=== PATIENT | female | born 2000 | race Caucasian/White ===

== ENCOUNTER 2021-01-21 18:28 | Emergency (ER) | payer OTHER, SELFPAY ==
[2021-01-21 18:42] VITALS: BP 102/56; PULSE 121; RESP 18; TEMP 37.5; O2SAT 96
[2021-01-21 20:43] VITALS: BP 121/74; PULSE 90; RESP 19; O2SAT 99
--- NOTE | 2021-01-21 21:03 | ED.GENADULT ---
HPI - General Adult General Chief complaint: Unspecified Stated complaint: sore throat Time Seen by Provider: 01/21/21 20:30 Source: patient Mode of arrival: ambulatory Limitations: no limitations History of Present Illness HPI narrative: Patient is a 20-year-old female who presents complaining of sore throat, body aches, chills and fever x3 days. She reports taking [id number]-[id number] medications with limited relief. She reports difficulty swallowing and is concerned for strep throat. She denies known exposure to Covid, however, does work outside of her home. MD complaint: Sore throat Related Data Allergies Allergy/AdvReac Type Severity Reaction Status Date / Time No Known Allergies Allergy Verified 01/21/21 21:05 Review of Systems Review of Systems: Narrative: CONSTITUTIONAL: Reports fever and chills x3 days EYES: Denies visual changes, redness, or discharge. ENT: Reports sore throat CARDIOVASCULAR: Denies chest pain, palpitations, or edema. RESPIRATORY: Denies cough or dyspnea. GASTROINTESTINAL: Denies abdominal pain, nausea, vomiting, or diarrhea. GENITOURINARY: Denies dysuria or hematuria. SKIN: Denies rash or itching. MUSCULOSKELETAL: Denies back pain, joint pain, or myalgia. NEUROLOGIC: Denies headache, numbness, dizziness, or weakness. PSYCHIATRIC: Denies anxiety or depression. PMFSH Past Medical History Medical History No significant past medical history Surgical History Surgical History No significant past surgical history Family History Family History Other No significant family history Social History Social History (Updated 01/21/21 @ 21:18 by EILEEN Wright) Smoking status: Never smoker Alcohol intake: never Substance use: never Living arrangements: with friend(s) Occupation/Education: occupation Comments At the time of signature, I have reviewed and agree with nursing past medical, surgical, social, and family history unless otherwise noted. Please see nursing chart for further information. There is no relevant family history pertinent to the presenting complaint. Exam Narrative: Exam Narrative: GENERAL: Well-appearing, well-nourished, and in no acute distress. HEAD: Normocephalic, atraumatic. EYES: EOMI. No redness or drainage. Conjunctiva are normal. ENT: Mucous membranes pink and moist. Nares clear. No rhinorrhea. TMs normal bilaterally. Throat with moderate erythema, edema and exudate NECK: AROM. Supple. No lymphadenopathy. CHEST: No respiratory distress. HEART: Regular rate and rhythm. EXTREMITIES: Normal range of motion. No edema. SKIN: Warm, dry, no rash. NEURO: No focal deficits. Alert and oriented x3. Gait steady. PSYCH: Normal affect. No signs of depression or anxiety. Course Vital Signs Vital signs: Vital Signs Temperature 37.5 C 01/21/21 18:42 Pulse Rate 121 H 01/21/21 18:42 Respiratory Rate 18 01/21/21 18:42 Blood Pressure 102/56 L 01/21/21 18:42 Pulse Oximetry 96 01/21/21 18:42 Temperature 37.5 C 01/21/21 18:42 Pulse Rate 121 H 01/21/21 18:42 Respiratory Rate 18 01/21/21 18:42 Blood Pressure 102/56 L 01/21/21 18:42 Pulse Oximetry 96 01/21/21 18:42 Reviewed Medical Decision Making MDM Narrative Medical decision making narrative: Patient's rapid strep was negative, culture sent. Patient tested for Covid in ED, results will be available in 1 to 2 days and patient aware. Patient to be treated for tonsillitis at this time. Discussed tdge-vna-jbiwvao medications for pain as well as good hydration. Patient is aware of Covid testing and aware of quarantine. Patient is stable for discharge home with outpatient follow-up as discussed. Differential Diagnosis Differential Diagnosis: Covid, strep throat, tonsillitis, pharyngitis Vital Signs Vital Signs:
[2021-01-21 22:00] VITALS: BP 128/70; PULSE 88; RESP 17; O2SAT 99
[2021-01-22 12:21] LABS: SARS-CoV-2 RNA PCR Positive
== END 2021-01-21 22:00 | disposition home or self-care (01) ==
PROVIDERS: Emergency Provider Nurse Practitioner
DX: U07.1 COVID-19 (principal); J03.90 Acute tonsillitis, unspecified
CPT/HCPCS: 87081; 87880; 99283; C9803; U0003; U0005

== ENCOUNTER 2022-06-18 10:18 | Emergency (ER) | payer OTHER, SELFPAY ==
[2022-06-18 10:25] VITALS: BP 117/65; PULSE 84; RESP 20; TEMP 36.6; O2SAT 100
--- NOTE | 2022-06-18 11:03 | ED.FEMALEGU ---
HPI - Female Genitourinary General Chief complaint: Urogenital-Female Stated complaint: Female Urogenital Time Seen by Provider: 06/18/22 11:03 History of Present Illness HPI Narrative: Yuki Downing is a 21 yo female with recurrent uti who comes to [facility] with complaints of pressure, retention, who comes to [facility] for treatment and also for test. She had a recent sexual encounter with a condom that was retained in her vaginal vault and was concerned about becoming Related Data Allergies Allergy/AdvReac Type Severity Reaction Status Date / Time No Known Allergies Allergy Verified 06/18/22 10:28 Review of Systems Review of Systems: CONSTITUTIONAL: Denies fever, chills, sweats. EYES: Denies visual changes, redness, discharge. ENT: Denies rhinorrhea, congestion, sore throat, otalgia. CARDIOVASCULAR: Denies chest pain, palpitations, edema. RESPIRATORY: Denies dyspnea, wheezing, cough GASTROINTESTINAL: Denies abdominal pain, nausea, vomiting, diarrhea. GENITOURINARY: Has dysuria, hematuria, abnormal discharge SKIN: Denies rash or itching. NEUROLOGIC: Denies numbness, or focal weakness. PSYCHIATRIC: Denies anxiety or depression. wants test PMFSH Past Medical History Medical History No significant past medical history Surgical History Surgical History No significant past surgical history Family History Family History Other No significant family history Social History Social History Smoking status: Never smoker Alcohol intake: never Substance use: never Comments At time of signature, I agree with nursing past medical, surgical, social and family history. There is no relevant family history pertinent to the presenting complaint. GENERAL: This is a well-nourished, well-developed patient, in mild distress. HEAD: normocephalic, atraumatic. EYES: Sclera clear/white. Vision is grossly intact. EARS: External ears normal. Hearing grossly intact. NOSE: External nose normal without nasal discharge, nares without redness, no rhinorrhea. THROAT: Mucous membranes moist, NECK: Neck supple, CARDIOVASCULAR: Regular rate and rhythm without murmurs, gallops, or rubs. RESPIRATORY: Clear to auscultation. Breath sounds equal bilaterally. No wheezes, rales, or rhonchi. GASTROINTESTINAL: Abdomen soft, SKIN: warm, intact with no suspicious lesions or rash, good texture and turgor. NEURO: awake, alert, and oriented to person, place and time. There were no obvious focal neurologic abnormalities. Steady gait EXTREMITIES: Normal range of motion. BACK: Nontender without deformity Course Course Emergency Course: Patient comes for complaints of dysuria and possible test negative UA shows positive blood, leukocytes 3+ Keflex twice daily x5 days Level of Care: [facility] Visit Vital Signs Vital signs: Vital Signs Temperature 97.9 F 06/18/22 10:25 Pulse Rate 84 06/18/22 10:25 Respiratory Rate 20 06/18/22 10:25 Blood Pressure 117/65 06/18/22 10:25 Pulse Oximetry 100 06/18/22 10:25 Oxygen Delivery Room Air 06/18/22 10:25 Temperature 97.9 F 06/18/22 10:25 Pulse Rate 84 06/18/22 10:25 Respiratory Rate 20 06/18/22 10:25 Blood Pressure 117/65 06/18/22 10:25 Pulse Oximetry 100 06/18/22 10:25 Oxygen Delivery Room Air 06/18/22 10:25 MDM - Female Genitourinary Differential Diagnosis Differential diagnosis: Likely urinary tract infection, cystitis and other (Potential ) Lab Data Labs: Urine Bilirubin Negative Reference Range: Negative Urine Ketone Negative Reference Range: Ne
== END 2022-06-18 11:22 | disposition home or self-care (01) ==
PROVIDERS: Emergency Provider Nurse Practitioner
DX: N30.01 Acute cystitis with hematuria (principal)
CPT/HCPCS: 81003; 87077; 87086; 87186; 99213; G0463

== ENCOUNTER 2022-08-06 17:34 | Emergency (ER) | payer OTHER, SELFPAY ==
[2022-08-06 17:42] VITALS: BP 108/65; PULSE 111; RESP 16; TEMP 36.6; O2SAT 100
--- NOTE | 2022-08-06 18:21 | ED.FEMALEGU ---
HPI - Female Genitourinary General Chief complaint: Urogenital-Female Stated complaint: Urinary Problem Time Seen by Provider: 08/06/22 18:10 Source: patient, RN notes reviewed and old records reviewed Mode of arrival: ambulatory Limitations: no limitations History of Present Illness HPI Narrative: 22-year-old female who presents to [facility] with complaints of urinary tract symptoms of perineal pressure, frequency and urgency for the past 12 hours. Patient denies any back pain or any vaginal bleeding or any abdominal cramping.Patient is 8 weeks . Patient reports that she has had initial ultrasound which was normal. Patient reports no known fevers or chills or any nausea or vomiting, MD elicited complaint: dysuria and other (8 weeks ) Pertinent past history: other (prior UTI in June) Onset (ago): hour(s) (12 hours ago) Location of symptoms: perineum Vaginal discharge: none Vaginal bleeding: none Patient : Yes Related Data Allergies Allergy/AdvReac Type Severity Reaction Status Date / Time No Known Allergies Allergy Verified 06/18/22 10:28 Review of Systems Review of Systems: CONSTITUTIONAL: Denies fever, chills, or sweats. EYES: Denies visual changes, redness, or discharge. ENT: Denies rhinorrhea, congestion, sore throat, or otalgia. CARDIOVASCULAR: Denies chest pain, palpitations, or edema. RESPIRATORY: Denies cough or dyspnea. GASTROINTESTINAL: Denies abdominal pain, nausea, vomiting, or diarrhea. GENITOURINARY: Positive for dysuria, no visible hematuria. SKIN: Denies rash or itching. MUSCULOSKELETAL: Denies back pain, joint pain, or myalgia. NEUROLOGIC: Denies headache, numbness, or weakness. PSYCHIATRIC: Denies anxiety or depression. [facility] Past Medical History Medical History (Updated 08/06/22 @ 20:10 by Shanelle Mena NP) UTI (urinary tract infection) Surgical History Surgical History No significant past surgical history Family History Family History Other No significant family history Social History Social History Smoking status: Never smoker Alcohol intake: never Substance use: never Comments At time of signature, agree with nursing past medical, surgical, social and family history. There is no relevant family history pertinent to the presenting complaint Exam Narrative: GENERAL: Well-appearing, well-nourished, and in no acute distress. HEAD: Normocephalic, atraumatic. EYES: PERRLA and EOMI. ENT: Nares clear, no rhinorrhea or epistaxis. Mucous membranes moist.TM's normal with good light reflex, throat pink with no lesions or tonsil swelling. NECK: Supple. no lymphadenopathy CHEST: Clear to auscultation. No respiratory distress. SAO2 100% on room air HEART: Regular rate and rhythm. No murmur heard. Normal peripheral pulses. ABDOMEN: Soft, nontender, nondistended, normal active bowel sounds.perineal pressure with frequency and urgency of urination with burning, no CVA tenderness. EXTREMITIES: Normal range of motion. No edema. SKIN: Warm, dry, no rash. NEURO: No focal deficits. Alert and oriented x3. Course Course Level of Care: [facility] Visit Vital Signs Vital signs: Vital Signs Temperature 36.6 C 08/06/22 17:42 Pulse Rate 111 H 08/06/22 17:42 Respiratory Rate 16 08/06/22 17:42 Blood Pressure 108/65 08/06/22 17:42 Pulse Oximetry 100 08/06/22 17:42 Oxygen Delivery Room Air 08/06/22 17:42 Temperature 36.6 C 08/06/22 17:42 Pulse Rate 111 H 08/06/22 17:42 Respiratory Rate 16 08/06/22 17:42 Blood Pressure 108/65 08/06/22 17:42 Pulse Oximetry 100 08/06/22 17:42 Oxygen Delivery Room Air 08/06/22 17:42 MDM - Female Genitourinary Differential Diagnosis Differential diagnosis: Likely urinary tract infection, cervicitis, vaginitis, cystitis and othe
== END 2022-08-06 18:44 | disposition home or self-care (01) ==
PROVIDERS: Emergency Provider Registered Nurse
DX: O23.41 Unspecified infection of urinary tract in pregnancy, first trimester (principal); N39.0 Urinary tract infection, site not specified; Z3A.08 8 weeks gestation of pregnancy
CPT/HCPCS: 81003; 87077; 87086; 87088; 99213; G0463

== ENCOUNTER 2023-02-04 13:57 | Outpatient (RCR) | payer OTHER, SELFPAY ==
[2023-02-04 14:58] VITALS: BP 114/65; PULSE 105
== END 2023-04-13 18:33 | disposition home or self-care (01) ==
LOC: ANHOBOP 13:57
PROVIDERS: Visit Provider Obstetrics & Gynecology
DX: O36.8130 Decreased fetal movements, third trimester, not applicable or unspecified (principal); Z3A.34 34 weeks gestation of pregnancy
CPT/HCPCS: 59025

== ENCOUNTER 2023-03-22 06:19 | Inpatient (IN) | payer OTHER, SELFPAY ==
[2023-03-22] VITALS (80 sets, daily range): BP systolic 95–135; BP diastolic 48–92; PULSE 86–121; RESP 16–18; TEMP 36.6–37.1; O2SAT 96–100; BMI 32.2
--- NOTE | 2023-03-22 06:50 | LDADM ---
This patient, Yuki Downing, was admitted to Labor/Delivery/Recovery 106 on 03/22/23 at 06:19. Plans for labor, pain management and were discussed with patient. Patient/family oriented to hospital policies and general routines including ID bracelet, bed and alarms, visiting hours, pain management, procedures, bathroom and other care routines, personal items, smoking policy, room service/diet and guest tray routines, security routines, and visiting hours. Patient/Family are encouraged to report perceived risks to care and to ask questions if they do not understand what they are told or what they should do. See OBIX for further documentation.
[2023-03-22 06:55] LABS: Basophils Absolute Auto 0.1 K/mm3 (0.0-0.1); Basophils Percent Auto 0.7 % (0.2-1.2); Eosinophils Absolute Auto 0.1 K/mm3 (0-0.3); Eosinophils Percent Auto 0.5 % (0-4.4); Hematocrit 30.5 % (37.0-47.0); Hemoglobin 9.5 g/dL (12.0-15.0); Immature Granulocyte Absolute 0.19 K/mm3 (0.00-0.031); Immature Granulocyte Percent A 1.6 % (0-0.5); Lymphocytes Absolute Auto 1.54 K/mm3 (0.9-3.2); Mean Corpuscular HGB Conc 31.1 g/dl (32-36); Mean Corpuscular Hemoglobin 25.8 pg (26-34); Mean Corpuscular Volume 82.9 fl (80-100); Mean Platelet Volume 11.9 fl (7.4-10.4); Monocytes Absolute Auto 1.1 K/mm3 (0.1-0.6); Monocytes Percent Auto 9.3 % (2.6-8.5); Neutrophils Absolute Auto 8.9 K/mm3 (1.3-6.7); Neutrophils Percent Auto 74.9 % (45.5-73.1); Platelet Count Result 267 k/mm3 (150-375); Red Blood Count 3.68 M/mm3 (4.2-5.4); Red Cell Distribution Width 14.2 % (11.5-14.5); White Blood Count 11.9 K/mm3 (4.5-10.0)
[2023-03-22] MEDS: AMPICILLIN 2 GM/NS 100 ML 2 GM/100 ML BAG IVPB (06:56)
[2023-03-22] MEDS: LACTATED RINGERS 1,000 ML 125 ML IV CONT ×3 (06:56→09:21)
[2023-03-22] MEDS: fentaNYL CITRATE INJ (*CRX) 100 MCG/2 ML VIAL 50 MCG IV PUSH (07:13)
--- NOTE | 2023-03-22 08:07 | WPDANESEPP ---
Anes - Eval Pre Procedure Procedure: Labor Epidural Date/Time: 03/22/23 08:07 Surgeon: Leonidas Preop Diagnosis: Labor Pain Pre Op Diagnosis: Labor Patient Data Age: 22 Gender: F Height: 1.6 m Weight: 82.5 kg Last Vital Signs Pulse 90 03/22/23 08:05 BP 95/50 L 03/22/23 08:05 Pulse Ox 99 03/22/23 08:05 O2 Del Method Room Air 03/22/23 06:45 Allergies Allergy/AdvReac Type Severity Reaction Status Date / Time No Known Allergies Allergy Verified 06/18/22 10:28 Home Medications Medication Instructions Recorded Confirmed Type vit no.95-ferrous 1 tablet PO DAILY 02/04/23 03/22/23 History fumarate 28 mg-folic acid 800 mcg tablet () Laboratory Tests 03/22/23 06:49 WBC 11.9 H K/mm3 (4.5-10.0) RBC 3.68 L M/mm3 (4.2-5.4) Hgb 9.5 L g/dL (12.0-15.0) Hct 30.5 L % (37.0-47.0) MCV 82.9 fl (80-100) MCH 25.8 L pg (26-34) MCHC 31.1 L g/dl (32-36) RDW 14.2 % (11.5-14.5) Plt Count 267 k/mm3 (150-375) MPV 11.9 H fl (7.4-10.4) Immature Gran % (Auto) 1.6 H % (0-0.5) Neut % (Auto) 74.9 H % (45.5-73.1) Lymph % (Auto) 13.0 L % (18.3-44.2) [place] % (Auto) 9.3 H % (2.6-8.5) Eos % (Auto) 0.5 % (0-4.4) Baso % (Auto) 0.7 % (0.2-1.2) Lymph # (Auto) 1.54 K/mm3 (0.9-3.2) [place] # (Auto) 1.1 H K/mm3 (0.1-0.6) Eos # (Auto) 0.1 K/mm3 (0-0.3) Baso # (Auto) 0.1 K/mm3 (0.0-0.1) Abs Immat Gran (auto) 0.19 H K/mm3 (0.00-0.031) Absolute Neuts (auto) 8.9 H K/mm3 (1.3-6.7) Absolute Nucleated RBC 0.0 K/mm3 (0.0-0.012) Nucleated RBC % 0.0 % (0.0-0.2) RPR Pending Blood Type A Positive Antibody Screen Negative : gestational age (, WHITNEY 03/15/23) Patient hx anesthesia problems: none Family hx anesthesia problems: none Results Review: All pre-operative results and documents have been reviewed as part of the pre-operative evaluation. [facility] Past Medical History Medical History UTI (urinary tract infection) Surgical History Surgical History No significant past surgical history Family History Family History Other No significant family history Social History Social History Smoking status: Never smoker Alcohol intake: never Substance use: never Lack of Transportation: No Lack of Food: Never True Current Housing: I Have Housing Concerned About Future Housing: No Difficulty Paying Gas/Electric Bills: No Difficulty Paying for Meds: No Currently Unemployed: No Education: High School Diploma/GED Difficulty w/ Childcare or Family Care: No Living arrangements: with friend(s) Occupation/Education: occupation Spiritual care concerns: No Exam Day of Procedure 03/22/23 08:07 Patient weight: normal Heart: regular rate and rhythm Lungs: normal air movement Airway: Mallampati scale class II Neurological: alert and oriented
--- NOTE | 2023-03-22 09:19 | WPDOBADMIT ---
Obstetrics - Admit Note Admission Note: record reviewed. Additions to the history and/or subsequent changes in the physical findings follow. 22 y/o G1 at 41 weeks here with contractions. GBS neg in office, but she says she had a urine culture that was positive for GBS at some point during the at an outside facility. Chlamydia cervicitis in early , treated, with a negative test of cure. Now comfortable with epidural. AVSS NST reactive TOCO: contractions every 2-4 min ABD soft, nontender, gravid, vertex EXT nontender Cervix 8/100/-1. AROM with thin meconium. A: IUP at term with labor. Meconium. GBS bacteruria. P: Peds aware of meconium. Ampicillin IV. Anticipate .
--- NOTE | 2023-03-22 12:06 | PM.OBPRVD ---
OB - Delivery Note Procedure Delivery date: 03/22/23 Procedure: Events: Positive Group B Strep (GBS) Induction method: None Delivery augmentation: Rupture of Membranes Delivery monitor: External FHT and External Uterine Route of delivery: Laceration Description: Periurethral Delivery repair: vicryl (3-0) Specimen: Yes (Cord blood) Quantitative Blood Loss (ml): 120 Anesthesia type: Epidural Disposition: PACU Complications: None Narrative: 22 y/o G1 at 41 weeks gestation who presented to the hospital with contractions. Labor was diagnosed. She received an epidural for pain control. Amniotomy was performed with return of meconium-stained fluid. Her labor progressed and her cervix dilated completely. She pushed with good effort and delivered the infant's head to the perineum. A loose nuchal cord was splinted and the body delivered The cord was reduced. The nose and mouth were bulb suctioned. After a delay, the cord was clamped and cut. The infant was handed off the field. Cord blood was collected. The placenta delivered spontaneously and was grossly normal in appearance. The usual 3 vessel cord was noted. A right sided periurethral laceration was sustained. This was reapproximated using 3 0 Vicryl in interrupted figure of eight fashion. Excellent hemostasis resulted as did excellent reapproximation of the normal anatomy. Needle and instrument counts were correct. The patient was taken to recovery room in stable condition. The went to the nursery in stable condition. I was present and scrubbed for the entire delivery. Baby Date of : 03/22/23 Time of : 11:44 Weeks of gestation at delivery: 41 gender: Male Weight (pounds): 7 Weight (ounces): 7 presentation: vertex position: Left Occiput Anterior Placenta delivery description: Spontaneous and Normal Configuration Cord Vessel Description: 3 Vessels and Delayed Cord Clamping score one minute: 9 score five minutes: 9
--- NOTE | 2023-03-22 12:10 | P.DS_ITS ---
DS: Admitting Diagnosis Discharge Date 03/24/23 Admitting Diagnosis IUP at 41 weeks Labor DS: Discharge Diagnosis Discharge Diagnosis (1) (normal spontaneous vaginal delivery): Code(s): O80 - Encounter for full-term uncomplicated delivery Status: Acute OB - DS: Summary OB Procedures : None OB Procedures Intrapartum: Spontaneous Vag Delivery OB Procedures: : None Time Spent with Patient Time attestation: Total time spent providing and/or coordinating discharge services: DS: Data Data Completed and Pending Labs on day of discharge: Labs from last 24 hours 03/22/23 06:49 WBC 11.9 H RBC 3.68 L Hgb 9.5 L Hct 30.5 L MCV 82.9 MCH 25.8 L MCHC 31.1 L RDW 14.2 Plt Count 267 MPV 11.9 H Immature Gran % (Auto) 1.6 H Neut % (Auto) 74.9 H Lymph % (Auto) 13.0 L [place] % (Auto) 9.3 H Eos % (Auto) 0.5 Baso % (Auto) 0.7 Lymph # (Auto) 1.54 [place] # (Auto) 1.1 H Eos # (Auto) 0.1 Baso # (Auto) 0.1 Abs Immat Gran (auto) 0.19 H Absolute Neuts (auto) 8.9 H Absolute Nucleated RBC 0.0 Nucleated RBC % 0.0 RPR Pending Blood Type A Positive Antibody Screen Negative Discharge Plan Discharge Attending physician on discharge: Durga Lauren Discharging Clinician: Durga Lauren Patient Disposition: Home, Self-Care Activity: pelvic rest Diet: regular Discharge Instructions: Call or return if temperature above 100.4? F, increased abdominal pain, increased vaginal bleeding or any new problems. Stand Alone Forms: General Discharge Information Follow-up/Referrals: Durga Lauren MD [Physician] - 6 Weeks Discharge Medications: New ibuprofen 600 mg tablet 600 mg PO Q6H PRN (Reason: cramps) Qty: 30 0RF ferrous sulfate 325 mg (65 mg iron) tablet 325 mg PO DAILY Qty: 30 0RF Continued PNV cmb#95-ferrous fumarate-FA [] 28 mg iron- 800 mcg Tablet 1 tablet PO DAILY Date of admission: 03/22/23 06:19 Primary Care Provider: PHYSICIAN,CLIENT SERVICE COORDINATOR Admitting Provider: Durga Lauren Attending physician on admission: Durga Lauren Condition: Stable
[2023-03-22] MEDS: BENZOCAINE 20% AER SPR (*SP) 56 GM CAN 1 SPRAY TOPICAL (14:14)
[2023-03-22] MEDS: WITCH HAZEL 40 PADS 1 PAD TOPICAL (14:14)
--- NOTE | 2023-03-22 15:06 | OBPPTRN ---
1430-Patient transferred to post room #281 via wheelchair. Use of Archana Steady to transfer to bed. Support person present. Oriented to unit, room, information board, rooming in, admission packet and security measures. Patient verbalizes understanding.
[2023-03-22] MEDS: IBUPROFEN 600 MG TABLET PO (16:07)
[2023-03-22] MEDS: DOCUSATE SODIUM 100 MG CAPSULE PO (16:08)
[2023-03-22] MEDS: POLYSACCHARIDE IRON COMPLEX 150 MG CAPSULE PO (16:08)
[2023-03-23] MEDS: IBUPROFEN 600 MG TABLET PO ×2 (03:00→19:19)
[2023-03-23 03:08] VITALS: BP 131/83; PULSE 104; RESP 18; TEMP 36.8; O2SAT 100
[2023-03-23 04:32] LABS: Hematocrit 25.2 % (37.0-47.0); Hemoglobin 7.7 g/dL (12.0-15.0)
[2023-03-23 07:35] VITALS: BP 112/63; PULSE 99; RESP 16; TEMP 37.3; O2SAT 99
[2023-03-23] MEDS: POLYSACCHARIDE IRON COMPLEX 150 MG CAPSULE PO ×2 (07:58→16:47)
[2023-03-23] MEDS: LANOLIN (LANSINOH) 7.5 GM CREAM 1 APPLIC TOPICAL (07:59)
[2023-03-23] MEDS: MULTIVIT/MIN/PREN/FOL AC/IRON TABLET 1 TAB PO (07:59)
[2023-03-23] MEDS: DOCUSATE SODIUM 100 MG CAPSULE PO (07:59)
[2023-03-23 08:00] VITALS: PULSE 99; RESP 16; O2SAT 99
--- NOTE | 2023-03-23 08:58 | PM.OBPNVD ---
OB - PN: Subj Subjective Date/time seen: 03/23/23 08:58 Narrative: Pain OK. Would like circumcision for son. OB - PN: Obj Data Labs 03/23/23 02:51 Labs: Laboratory Results - last 24 hr 03/23/23 02:51 Hgb 7.7 L Hct 25.2 L OB - PN A/P Plan Comments: A: PPD#1, doing well. P: Routine care. Reviewed circ. Exam Psych: Other: AVSS ABD soft, nontender, fundus firm EXT nontender
[2023-03-23 10:05] LABS: Rapid Plasma Reagin Non-Reactive (NonReactive)
--- NOTE | 2023-03-23 10:55 | WPDANLDPN2 ---
Anes-Prog Note L&D Date/Time: 03/23/23 10:55 Neuro status: Neuro function grossly intact. Vital Signs: Last Vital Signs Temp 37.3 C 03/23/23 07:35 Pulse 99 03/23/23 08:00 Resp 16 03/23/23 08:00 BP 112/63 03/23/23 07:35 Pulse Ox 99 03/23/23 08:00 O2 Del Method Room Air 03/23/23 08:00 Pain score (VAS): 0 I/O: Intake & Output 03/22/23 03/23/23 03/23/23 23:59 07:59 15:59 Intake Total 240 Balance 240 Patient feedback: Patient satisfied with anesthetic care.
--- NOTE | 2023-03-23 12:11 | PC.NURSE ---
[id number] Introductions were made, then consulted with patient to assess needs related to . Mother led the conversation with her?plans to feed?her infant, the?experience so far and is pumping breast with a portable pump. Father of baby is syringe feeding colostrum for a total of 6mls. Resources provided for inpatient and outpatient services with the feeding sheet, mom/baby guide and name written on the white board. Encouraged skin to skin and stimulating for effective . Discussion concerning the 's tight lower frenulum and the ability to stick tongue out past the gumline. Mother has dark red crease lines down the middle of her nipples. Reviewed milk production and portable versus electric pumps. Mother voiced understanding of information and will call if there is a request for assistance. Reported to the primary RN.
[2023-03-23 19:57] VITALS: BP 115/82; PULSE 104; RESP 18; TEMP 36.9; O2SAT 98
[2023-03-24] MEDS: DOCUSATE SODIUM 100 MG CAPSULE PO (07:36)
[2023-03-24] MEDS: IBUPROFEN 600 MG TABLET PO (07:36)
[2023-03-24] MEDS: TETANUS,DIPHTHERIA,AC PERTUSSIS ADULT (0.5 ML) BOOSTRIX IM (07:37)
[2023-03-24] MEDS: MULTIVIT/MIN/PREN/FOL AC/IRON TABLET 1 TAB PO (07:40)
[2023-03-24] MEDS: POLYSACCHARIDE IRON COMPLEX 150 MG CAPSULE PO (07:40)
[2023-03-24 08:25] VITALS: BP 118/75; PULSE 104; RESP 16; TEMP 36.7; O2SAT 98
--- NOTE | 2023-03-24 09:12 | PC.NURSE ---
[id number] Purposefully rounded to assess needs related to mother had sore nipples with pigmented creases down the middle when LC met her yesterday. Mother states her left nipple is better than the right. The right nipple is excoriated. Reminded mother the importance of hand washing and keeping the breast clean and clear of bacteria. Reviewed preventing, signs of mastitis and when to call her OB doctor. Reminded parents of on demand to encourage with [id number] and unwrapping if it has been 2-2.5 hours since the start of the last feeding. Reviewed protecting the milk supply and how to call for assistance. Mother voiced understanding of the information.
--- NOTE | 2023-03-24 11:49 | PM.OBPNVD ---
OB - PN: Subj Subjective Date/time seen: 03/24/23 11:49 Narrative: Pain OK. Would like to go home. OB - PN: Obj Data Labs 03/23/23 02:51 OB - PN A/P Plan Comments: A: PPD#2, doing well. P: Home to f/u 6 weeks. Exam Psych: Other: AVSS ABD soft, nontender, fundus firm EXT nontender
--- NOTE | 2023-03-24 13:51 | PC.NURSE ---
[id number] Insurance breast pump provided due to mothers request. Instructions given on cleaning, care, usage, that there should be no pain, pumping schedule for milk production, collection, and storage of human milk. Parents are encouraged to record pumping schedule on the feeding sheet. Patient was assessed for correct placement, flange size, to pump for comfort and nipple stretching/stimulation for adequate milk production every 3 hours (8 times in 24 hours) 1-2 times at night. Mother voiced understanding of the education shared along with mom and baby guide for additional resource information. Reported to the primary RN.
--- NOTE | 2023-03-24 20:30 | PC.NURSE ---
1100 Patient viewed the discharge video Mother & Baby Care, The First Two Weeks . Patient was given the opportunity and encouraged to ask questions. Patient verbalized understanding of information shared and has been given the mother/baby guide for home reference.
[2023-03-25 08:21] VITALS: BP 119/73; PULSE 98; RESP 16; TEMP 36.8; O2SAT 99
== END 2023-03-24 14:12 | disposition home or self-care (01) | DRG 560 ==
LOC: ANHLDR 12:11 → ANHOB2 14:44
PROVIDERS: Admitting Provider Obstetrics & Gynecology; Visit Provider Obstetrics & Gynecology
DX: O99.824 Streptococcus B carrier state complicating childbirth (principal); O69.81X0 Labor and delivery complicated by cord around neck, without compression, not applicable or unspecified; Z37.0 Single live birth; Z3A.41 41 weeks gestation of pregnancy; O77.0 Labor and delivery complicated by meconium in amniotic fluid; O71.82 Other specified trauma to perineum and vulva
CPT/HCPCS: 36415; 85014; 85018; 85025; 86592; 86850; 86900; 86901; 90715; A9270; J0290; J2795; J3010; J7120

== ENCOUNTER 2023-08-19 08:37 | Emergency (ER) | payer OTHER, SELFPAY ==
[2023-08-19 08:46] VITALS: BP 100/71; PULSE 88; RESP 16; TEMP 36.6; O2SAT 100
--- NOTE | 2023-08-19 08:47 | ED.FEMALEGU ---
HPI - Female Genitourinary General Chief complaint: Urogenital-Female Stated complaint: Uti symptoms Time Seen by Provider: 08/19/23 08:40 Source: patient and RN notes reviewed History of Present Illness HPI Narrative: Patient is a 23-year-old female who presents to urgent care with complaints of possible UTI due to dysuria and frequency that started last night and worsened at 3:00 a.m.. Patient denies any fever, nausea, vomiting, flank pain. Does report a pelvic pressure. Patient did take azo at home this morning and is currently on her menstrual cycle. Patient states no chance of . No other acute complaints. No acute distress noted. Patient aware of the plan of care. Some parts of this dictation were generated by voice recognition software and may contain typographical and/or grammatical inaccuracies. Related Data Home Medications Medication Instructions Recorded Confirmed norethindrone (contraceptive) 0.35 0.35 mg PO DAILY 08/19/23 08/19/23 mg tablet Allergies Allergy/AdvReac Type Severity Reaction Status Date / Time No Known Allergies Allergy Verified 08/19/23 08:49 Review of Systems Review of Systems: CONSTITUTIONAL: Denies fever, chills, or sweats. EYES: Denies visual changes, redness, or discharge. ENT: Denies rhinorrhea, congestion, sore throat, or otalgia. CARDIOVASCULAR: Denies chest pain, palpitations, or edema. RESPIRATORY: Denies cough or dyspnea. GASTROINTESTINAL: Denies abdominal pain, nausea, vomiting, or diarrhea. GENITOURINARY: Reports of dysuria, frequency and pelvic pressure SKIN: Denies rash or itching. MUSCULOSKELETAL: Denies back pain, joint pain, or myalgia. NEUROLOGIC: Denies headache, numbness, or weakness. All other systems reviewed are negative, except as documented in HPI. [facility] Past Medical History Medical History UTI (urinary tract infection) Surgical History Surgical History No significant past surgical history Family History Family History Other No significant family history Social History Social History Smoking status: Never smoker Alcohol intake: never Substance use: never Lack of Transportation: No Lack of Food: Never True Current Housing: I Have Housing Concerned About Future Housing: No Difficulty Paying Gas/Electric Bills: No Difficulty Paying for Meds: No Currently Unemployed: No Education: High School Diploma/GED Difficulty w/ Childcare or Family Care: No Living arrangements: with friend(s) Occupation/Education: occupation Spiritual care concerns: No Comments At the time of my signature, I reviewed and agree with the nursing past medical, surgical, social, and family history. There is no relevant family history pertinent to the patient complaint. Exam Narrative: GENERAL: This is a well-nourished, well-developed patient, in no apparent distress. HEAD: normocephalic, atraumatic. EYES: PERRL. Sclera clear/white. Vision is grossly intact. EARS: External ears normal NOSE: External nose normal with no obvious nasal discharge, nares without redness, no rhinorrhea. THROAT: Mucous membranes moist NECK: Neck supple CARDIOVASCULAR: Regular rate and rhythm without murmurs, gallops, or rubs. RESPIRATORY: Clear to auscultation. Breath sounds equal bilaterally. No wheezes, rales, or rhonchi. GASTROINTESTINAL: Abdomen soft, suprapubic tenderness, nondistended. Bowel sounds are active. SKIN: warm, intact with no suspicious lesions or rash, good texture and turgor. NEURO: awake, alert, and oriented to person, place and time. There were no obvious focal neurologic abnormalities. EXTREMITIES: No clubbing, cyanosis, or edema. BACK: Mild bilateral CVA tenderness Course Course Level of Care: [place]
== END 2023-08-19 09:00 | disposition home or self-care (01) ==
PROVIDERS: Emergency Provider Nurse Practitioner Family
DX: N39.0 Urinary tract infection, site not specified (principal)
CPT/HCPCS: 81003; 87077; 87086; 87088; 99213; G0463

== ENCOUNTER 2023-12-06 15:22 | Emergency (ER) | payer OTHER, SELFPAY ==
--- NOTE | ~2023-12-06 | XR_ITS ---
EXAM: XR thoracolumbar DATE: 12/06/2023 16:35 HISTORY: pain approx L1 after fall, lump on back . COMPARISON: None available. FINDINGS: Vertebral body alignment intact. Mild scoliosis. Vertebral body heights preserved. No disc space narrowing. No traumatic malalignment or fracture. Radiopaque BB marker over the posterior soft tissues, no associated abnormality. Visualized lung parenchyma is clear. IMPRESSION: No acute fracture or traumatic malalignment detected in the thoracolumbar spine. Reviewed, dictated and finalized at location K. [employer]TER[employer] IMPRESSION: No acute fracture or traumatic malalignment detected in the thoraco lumbar spine.
[2023-12-06 15:35] VITALS: BP 121/81; PULSE 105; RESP 19; TEMP 36.8; O2SAT 100
--- NOTE | 2023-12-06 15:49 | ED.BACK ---
HPI - Back Pain/Injury General Chief Complaint: Back Pain/Injury Stated Complaint: Back pain Time Seen by Provider: 12/06/23 15:42 Source: patient and RN notes reviewed Mode of arrival: ambulatory Limitations: no limitations History of Present Illness HPI Narrative: Patient presents today complaining of midline midback pain. Patient tripped and fell on a wet tile floor at home 5 days ago and struck her spine on the edge of a step at home and has been having pain ever since. States she has a, ?bump? on her spine is very tender to palpation. States pain radiates up and down her spine with twisting. Denies radiation to her extremities. Denies numbness or tingling. States pain has been slightly improving since onset of symptoms. She currently rates her pain 2/10. She had applied heat once without relief and has taken no medication for her symptoms. Related Data Home Medications Medication Instructions Recorded Confirmed norethindrone (contraceptive) 0.35 0.35 mg PO DAILY 08/19/23 12/06/23 mg tablet Allergies Allergy/AdvReac Type Severity Reaction Status Date / Time No Known Allergies Allergy Verified 12/06/23 15:41 Review of Systems Review of Systems: CONSTITUTIONAL: Denies body aches, fever, chills, or sweats. EYES: Denies visual changes, redness, or discharge. ENT: Denies rhinorrhea, congestion, sore throat, or otalgia. CARDIOVASCULAR: Denies chest pain, palpitations, or edema. RESPIRATORY: Denies cough or dyspnea. GASTROINTESTINAL: Denies abdominal pain, nausea, vomiting, or diarrhea. GENITOURINARY: Denies dysuria or hematuria. SKIN: Denies rash, itching, or wounds. MUSCULOSKELETAL: + midline back pain. NEUROLOGIC: Denies headache, numbness, tingling, or weakness. PSYCH: Denies depression or anxiety. [facility] Past Medical History Medical History UTI (urinary tract infection) Surgical History Surgical History No significant past surgical history Family History Family History Other No significant family history Social History Social History Smoking status: Never smoker Alcohol intake: never Substance use: never Lack of Transportation: No Lack of Food: Never True Current Housing: I Have Housing Concerned About Future Housing: No Difficulty Paying Gas/Electric Bills: No Difficulty Paying for Meds: No Currently Unemployed: No Education: High School Diploma/GED Difficulty w/ Childcare or Family Care: No Living arrangements: with friend(s) Occupation/Education: occupation Spiritual care concerns: No Comments At time of signature, I have reviewed and agree with nursing past medical, surgical, social and family history unless otherwise noted. Please see nursing chart for further information. There is no relevant family history pertinent to the presenting complaint Exam Narrative: GENERAL: Well-appearing, well-nourished, and in no acute distress. HEAD: Normocephalic, atraumatic. EYES: EOMI. No redness or drainage. Conjunctivae normal. ENT: Mucous membranes pink and moist. NECK: Normal AROM. CHEST: No respiratory distress. MUSCULOSKELETAL: Small area of point tenderness and localized swelling of the midline spine at T12/L1 area. No ecchymosis or erythema noted. Distal sensation intact. Capillary refill normal. Full range of motion of all extremities. EXTREMITIES: Normal range of motion. No edema. SKIN: Warm, dry, no rash. Capillary refill normal. Normal skin turgor. NEURO: No focal deficits. Alert and oriented x3. Gait steady. PSYCH: Normal affect. No signs of depression or anxiety. Course Course Level of Care: Express Care Visit Vital Signs Vital signs: Vital Signs Temperature 98.2 F 12/06/23
== END 2023-12-06 17:20 | disposition home or self-care (01) ==
PROVIDERS: Emergency Provider Nurse Practitioner
DX: S20.224A Contusion of middle back wall of thorax, initial encounter (principal); W01.0XXA Fall on same level from slipping, tripping and stumbling without subsequent striking against object, initial encounter
CPT/HCPCS: 72080; 99213; G0463

== ENCOUNTER 2023-12-16 08:10 | Emergency (ER) | payer OTHER, SELFPAY ==
[2023-12-16 08:20] VITALS: BP 100/59; PULSE 105; RESP 16; TEMP 36.6; O2SAT 100
--- NOTE | 2023-12-16 08:38 | ED.ABDPAIN ---
HPI - Abdominal Pain General Chief Complaint: Abdominal Pain Stated Complaint: Abdominal Pain Right Side Time Seen by Provider: 12/16/23 08:30 Source: patient and RN notes reviewed Mode of arrival: ambulatory Limitations: no limitations History of Present Illness HPI narrative: Patient presents today complaining of RLQ abdominal pain with nausea since last night. Pain worse with deep breaths. Currently rates her pain 2-3/10. Denies any additional symptoms to include vomiting, fever, or any urinary symptoms. Patient reports her LMP is May of 2022, but review of her chart shows a visit in 2022 to [facility] where she was menstruating. She is on control. Related Data Home Medications Medication Instructions Recorded Confirmed norethindrone (contraceptive) 0.35 0.35 mg PO DAILY 08/19/23 12/06/23 mg tablet Allergies Allergy/AdvReac Type Severity Reaction Status Date / Time No Known Allergies Allergy Verified 12/06/23 15:41 Review of Systems Review of Systems: CONSTITUTIONAL: Denies body aches, fever, chills, or sweats. EYES: Denies visual changes, redness, or discharge. ENT: Denies rhinorrhea, congestion, sore throat, or otalgia. CARDIOVASCULAR: Denies chest pain, palpitations, or edema. RESPIRATORY: Denies cough or dyspnea. GASTROINTESTINAL: Denies vomiting, or diarrhea.+ abdominal pain, nausea GENITOURINARY: Denies dysuria or hematuria. SKIN: Denies rash, itching, or wounds. MUSCULOSKELETAL: Denies back pain, joint pain, or myalgia. NEUROLOGIC: Denies headache, numbness, tingling, or weakness. PSYCH: Denies depression or anxiety. [facility] Past Medical History Medical History UTI (urinary tract infection) Surgical History Surgical History No significant past surgical history Family History Family History Other No significant family history Social History Social History Smoking status: Never smoker Alcohol intake: never Substance use: never Lack of Transportation: No Lack of Food: Never True Current Housing: I Have Housing Concerned About Future Housing: No Difficulty Paying Gas/Electric Bills: No Difficulty Paying for Meds: No Currently Unemployed: No Education: High School Diploma/GED Difficulty w/ Childcare or Family Care: No Living arrangements: with friend(s) Occupation/Education: occupation Spiritual care concerns: No Comments At time of signature, I have reviewed and agree with nursing past medical, surgical, social and family history unless otherwise noted. Please see nursing chart for further information. There is no relevant family history pertinent to the presenting complaint Exam Narrative: GENERAL: Well-appearing, well-nourished, and in no acute distress. HEAD: Normocephalic, atraumatic. EYES: EOMI. No redness or drainage. Conjunctivae normal. ENT: Mucous membranes pink and moist. NECK: Normal AROM. CHEST: No respiratory distress. Clear to auscultation. HEART: Regular rate and rhythm. No murmur appreciated. Normal peripheral pulses. ABDOMEN: Soft, nondistended, normal active bowel sounds. + right lower quadrant tenderness EXTREMITIES: Normal range of motion. No edema. SKIN: Warm, dry, no rash. Capillary refill normal. Normal skin turgor. NEURO: No focal deficits. Alert and oriented x3. Gait steady. PSYCH: Normal affect. No signs of depression or anxiety. Course Course Level of Care: Express Care Visit Vital Signs Vital signs: Vital Signs Temperature 97.9 F 12/16/23 08:20 Pulse Rate 105 H 12/16/23 08:20 Respiratory Rate 16 12/16/23 08:20 Blood Pressure 100/59 L 12/16/23 08:20 Pulse Oximetry 100 12/16/23 08:20 Oxygen Delivery Room Air 12/16/23 08:20 Temp
== END 2023-12-16 08:51 | disposition short-term general hospital (02) ==
PROVIDERS: Emergency Provider Nurse Practitioner
DX: R10.31 Right lower quadrant pain (principal); Z86.16 Personal history of COVID-19
CPT/HCPCS: 99212; G0463

== ENCOUNTER 2023-12-26 11:48 | Emergency (ER) | payer OTHER, SELFPAY ==
[2023-12-26 11:56] VITALS: BP 107/54; PULSE 98; RESP 18; TEMP 36.9; O2SAT 100
--- NOTE | 2023-12-26 12:09 | ED.SKABFB ---
HPI - Skin/Abscess/Foreign Bdy General Chief complaint: Skin/Abscess/Foreign Body Stated complaint: rash on stomach Time Seen by Provider: 12/26/23 12:22 Source: patient, RN notes reviewed and old records reviewed Mode of arrival: ambulatory Limitations: no limitations History of Present Illness HPI narrative: 23-year-old female presents to the [facility] with a rash to her mid abdomen left side wrapping around to her lower ribs and to her back. Does not cross midline Denies any fever Describes it as being very painful Related Data Home Medications Medication Instructions Recorded Confirmed norethindrone (contraceptive) 0.35 0.35 mg PO DAILY 08/19/23 12/26/23 mg tablet Allergies Allergy/AdvReac Type Severity Reaction Status Date / Time No Known Allergies Allergy Verified 12/26/23 12:16 Review of Systems Review of Systems: All systems reviewed & are unremarkable except as noted in HPI and below Constitutional: Constitutional: Reports no additional constitutional complaints Eyes: Eyes: Reports no additional eye complaints ENT: Reports system reviewed and no additional complaints, except as documented Cardiovascular: Cardiovascular: Reports no additional cardiovascular complaints, Denies chest pain and Denies dyspnea Respiratory: Respiratory: Reports no additional respiratory complaints, Denies chest congestion, Denies cough and Denies dyspnea Gastrointestinal: Gastrointestinal: Reports no additional gastrointestinal complaints, Denies abdominal pain, Denies nausea and Denies vomiting Musculoskeletal: Musculoskeletal: Reports no additional musculoskeletal complaints Integumentary/Breasts: Skin/Breast: Reports as per HPI and Reports rash Neurologic: Reports system reviewed and no additional complaints, except as documented Psychiatric: Psychiatric: Reports no additional psychiatric complaints Allergic/Immunologic: Allergic/Immunologic: Reports no additional allergic/immunologic complaints [facility] Past Medical History Medical History UTI (urinary tract infection) Surgical History Surgical History No significant past surgical history Family History Family History Other No significant family history Social History Social History Smoking status: Never smoker Alcohol intake: never Substance use: never Lack of Transportation: No Lack of Food: Never True Current Housing: I Have Housing Concerned About Future Housing: No Difficulty Paying Gas/Electric Bills: No Difficulty Paying for Meds: No Currently Unemployed: No Education: High School Diploma/GED Difficulty w/ Childcare or Family Care: No Living arrangements: with friend(s) Occupation/Education: occupation Spiritual care concerns: No Comments At the time of my signature, I reviewed and agree with the nursing past medical, surgical, social, and family history. There is no relevant family history pertinent to the patient complaint. Exam Const: General: cooperative, healthy appearing, comfortable, no acute distress, well developed, alert and well nourished Nutritional Appearance: well nourished Orientation/consciousness: patient oriented x3 Limitations: no limitations HENMT: Head: normal to inspection Ears: hearing grossly normal bilaterally and external ears normal Face/Nose/Sinus: Normal external nose present, Normal nares present, Normal nasal mucous membranes and turbinates present, normal facial exam and face symmetric Face and sinus: normal facial exam and face symmetric Eyes: General: appearance normal, both eyes and all related structures Alignment and Position: alignment normal Periorbital: periorbital findings normal Pupils: Equal, round and reactive pupils present EOM: EOMs intact cliff
== END 2023-12-26 12:45 | disposition home or self-care (01) ==
PROVIDERS: Emergency Provider Nurse Practitioner
DX: B02.9 Zoster without complications (principal)
CPT/HCPCS: 99213; G0463

== ENCOUNTER 2024-11-24 09:52 | Emergency (ER) | payer OTHER, SELFPAY ==
--- NOTE | ~2024-11-24 | XR_ITS ---
EXAMINATION: XR sacrum coccyx min 2V DATE: 11/24/2024 10:41 INDICATION: Sacrococcygeal pain. Fall. TECHNIQUE: 3 views of the sacrum and coccyx were obtained. COMPARISON: None. FINDINGS: Alignment is normal. No fracture. Joint spaces are normal. IMPRESSION: 1. No fracture. Reviewed, dictated and finalized at location A. AL GROUP WORKER IMPRESSION: 1. No fracture.
[2024-11-24 10:09] VITALS: BP 112/65; PULSE 90; RESP 20; TEMP 36.7; O2SAT 100
--- NOTE | 2024-11-24 10:27 | ED.FALL ---
HPI - Fall General Chief Complaint: Fall Stated Complaint: Fell down snowboarding Time Seen by Provider: 11/24/24 10:35 Source: patient, RN notes reviewed and old records reviewed Mode of arrival: ambulatory Limitations: no limitations History of Present Illness HPI Narrative: patient presents with complaints of sacral/coccyx pain. She reports that she was snowboarding yesterday, fell off snowboard and landed on her buttocks. She reports that she has had sacral/coccyx pain ever since. Pain is worse with sitting, better with walking. She has not taken any medications for her symptoms. She denies other injury and trauma. Denies any numbness or tingling Related Data Home Medications ?Medication ?Instructions ?Recorded ?Confirmed ?Last Taken ?Type No Home Medications 11/24/24 11/24/24 Unknown History Allergies Allergy/AdvReac Type Severity Reaction Status Date / Time No Known Allergies Allergy Verified 11/24/24 10:09 Review of Systems Review of Systems: All systems reviewed & are unremarkable except as noted in HPI and below Constitutional: Constitutional: Reports no additional constitutional complaints ENT: Reports system reviewed and no additional complaints, except as documented Cardiovascular: Cardiovascular: Reports no additional cardiovascular complaints Respiratory: Respiratory: Reports no additional respiratory complaints Gastrointestinal: Gastrointestinal: Reports no additional gastrointestinal complaints Musculoskeletal: Musculoskeletal: Reports no additional musculoskeletal complaints and Reports as per HPI [facility] Past Medical History Medical History UTI (urinary tract infection) Surgical History Surgical History No significant past surgical history Family History Family History Other No significant family history Social History Social History Smoking status: Never smoker Alcohol intake: never Substance use: never Lack of Transportation: No Lack of Food: Never True Current Housing: I Have Housing Concerned About Future Housing: No Difficulty Paying Gas/Electric Bills: No Difficulty Paying for Meds: No Currently Unemployed: No Education: High School Diploma/GED Difficulty w/ Childcare or Family Care: No Living arrangements: with friend(s) Occupation/Education: occupation Spiritual care concerns: No Comments At the time of my signature, I reviewed and agree with the nursing past medical, surgical, social, and family history. There is no relevant family history pertinent to the patient complaint. Exam Const: General: cooperative, no acute distress, alert and awake Orientation/consciousness: oriented to person, oriented to place and oriented to time HENMT: Head: normal to inspection Resp: Effort & Inspection: normal respiratory effort and able to speak in complete sentences Auscultation: clear to auscultation bilaterally, no crackles, no rales, no rhonchi and no wheezes Cardio: Palpation: normal PMI Rate: regular rate Rhythm: regular rhythm Heart sounds: S1 normal heart sound present and S2 normal heart sound present Back/Spine/Pelvis: Back/spine/pelvis image:  1. tenderness Neuro: General: oriented to person, oriented to place and oriented to time Cranial nerves: Yes CN's II-XII intact bilaterally Psych: Appearance: grossly normal Thought process: Normal thought process present Insight: Good insight present (Psych) Judgement: Good judgement present (Psych) Course Course Level of Care: Express Care Visit Vital Signs Vital signs: Vital Signs Temperature 98.1 F 11/24/24 10:09 Pulse Rate 90 11/24/24 10:09 Respiratory Rate 20 11/24/24 10:09 Blood Pressure 112/65 11/24/24 10:09 Pulse Oximetry 100 11/24/24 10:09 Temperature 98.1 F 11/24/24 10:09 Pulse Rate 90 11/24/24 10:09 Respiratory Rate 20 11/24/24 10:09 Blood Pressure 112/65 11/24/24 10:09 Pulse Oximetry 100 11/24/24 10:09 Reviewed MDM - Fall MDM Narrative Medical decision making narrative: negative x-ray. Patient without numbness or tingling. Advised to treat symptomatically. Discharge instructions reviewed with patient, as well as provided in writing per nursing staff. The instructions also include specific and strict return/GO TO THE ER as well as f/u information. All questions have been answered, and the patient deny any further questions with discharge and discharge plan. Some parts of this dictation were generated by voice recognition software and may contain typographical and/or grammatical inaccuracies. Differential Diagnosis Differential diagnosis: Likely other (Coccyx fracture, contusion, musculoskeletal pain) Medical Records Attestation: I reviewed the patient's medical records. Imaging Data Attestation: I personally reviewed and interpreted this imaging study as follows: My impression: negative Radiologist's impression: Carrie Crowe [address] [address] XRay Report Signed Patient: Yuki Downing : 2000 MR#: [id number] Age: 24 Acct:[id number] Loc: [facility] ADM Date: 11/24/24Attending Dr: Ordering Physician: Rae Schwarz FNP Date of Service: 11/24/24 Procedure(s): XR sacrum coccyx min 2V Accession Number(s): [id number] cc: Rae Schwarz FNP; UNKNOWN,DOCTOR~ EXAMINATION: XR sacrum coccyx min 2V DATE: 11/24/2024 10:41 INDICATION: Sacrococcygeal pain. Fall. TECHNIQUE: 3 views of the sacrum and coccyx were obtained. COMPARISON: None. FINDINGS: Alignment is normal. No fracture. Joint spaces are normal. IMPRESSION: 1. No fracture. Reviewed, dictated and finalized at location A. WARE DESIGN ENGINEER Please be advised this is a medical document. It is intended for [id number] communication. It is written in medical language and may contain unfamiliar abbreviations or verbiage. Medical documents are intended to carry relevant information, facts as evident, and the clinical opinion of the practitioner at the time of the encounter. This report may have been done utilizing a voice recognition system. Attempts have been made to correct errors. However, there may be uncorrected grammatical, spelling, and recognition errors present. The file time of this note does not necessarily represent the time the patient was seen. Dictated By: Luis Enrique Sumner MD 11/24/24 1042 Signed By: <Electronically signed by Luis Enrique Sumner MD in OV> 11/24/[address] [place] [address] XRay Report Signed Patient: Yuki Downing : 2000 MR#: [id number] Age: 24 Acct:[id number] Loc: [facility] ADM Date: 11/24/24Attending Dr: Ordering Physician: Rae Schwarz FNP Date of Service: 11/24/24 Procedure(s): XR sacrum coccyx min 2V Accession Number(s): [id number] cc: Rae Schwarz FNP; UNKNOWN,DOCTOR~ EXAMINATION: XR sacrum coccyx min 2V DATE: 11/24/2024 10:41 INDICATION: Sacrococcygeal pain. Fall. TECHNIQUE: 3 views of the sacrum and coccyx were obtained. COMPARISON: None. FINDINGS: Alignment is normal. No fracture. Joint spaces are normal. IMPRESSION: 1. No fracture. Reviewed, dictated and finalized at location A. WARE DESIGN ENGINEER Please be advised this is a medical document. It is intended for [id number] communication. It is written in medical language and may contain unfamiliar abbreviations or verbiage. Medical documents are intended to carry relevant information, facts as evident, and the clinical opinion of the practitioner at the time of the encounter. This report may have been done utilizing a voice recognition system. Attempts have been made to correct errors. However, there may be uncorrected grammatical, spelling, and recognition errors present. The file time of this note does not necessarily represent the time the patient was seen. Dictated By: Luis Enrique Sumner MD 11/24/24 1042 Signed By: <Electronically signed by Luis Enrique Sumner MD in OV> 11/24/24 1043 Discharge Plan Discharge Clinical Impression: Musculoskeletal pain Patient Disposition: Home, Self-Care Condition: Stable Instructions: Antibiotic Form, Musculoskeletal Pain (ED) Additional Instructions: take Tylenol and/or ibuprofen per package instructions for pain. Follow-up with primary care provider. Emergency department for new or worsening symptoms Patient Language: Wolof Prescriptions: No Action No Home Medications Follow-up/Referrals: UNKNOWN,DOCTOR [Primary Care Provider] - Time of Disposition: 10:48
== END 2024-11-24 10:35 | disposition home or self-care (01) ==
PROVIDERS: Emergency Provider Nurse Practitioner Family
DX: M53.3 Sacrococcygeal disorders, not elsewhere classified (principal)
CPT/HCPCS: 72220; 99213; G0463

== ENCOUNTER 2025-10-02 09:06 | Emergency (ER) | payer OTHER, MEDICAID, SELFPAY ==
[2025-10-02 09:16] VITALS: BP 109/67; PULSE 82; RESP 16; TEMP 36.6; O2SAT 100
--- NOTE | 2025-10-02 09:50 | ED.URI ---
HPI - URI/Sore Throat General Chief Complaint: Upper Respiratory Infection Stated Complaint: Ear Pain/Fever/Sore Throat Time Seen by Provider: 10/02/25 09:40 Source: patient and RN notes reviewed Mode of arrival: ambulatory Limitations: no limitations History of Present Illness HPI Narrative: 25-year-old female presents to the [facility] complaining of bilateral ear pain for 1 week, sore throat and fevers that started yesterday. Patient says left ear is worse than right. Patient said yesterday she started developing a sore throat along with fevers. Since then the sore throat is gotten worse. Patient took Motrin to help with the fever. Denies any significant past medical history. Patient reports close exposure to strep. Related Data Allergies Allergy/AdvReac Type Severity Reaction Status Date / Time No Known Allergies Allergy Verified 10/02/25 09:50 Review of Systems Review of Systems: CONSTITUTIONAL: Positive for fevers. Negative for body aches, chills, or sweats. EYES: Denies visual changes, redness, or discharge. ENT: Denies rhinorrhea, congestion. Positive for sore throat and otalgia. CARDIOVASCULAR: Denies chest pain, palpitations, or edema. RESPIRATORY: Denies cough, wheezing, or dyspnea. GASTROINTESTINAL: Denies abdominal pain, nausea, vomiting, or diarrhea. GENITOURINARY: Denies dysuria or hematuria. SKIN: Denies rash or itching. MUSCULOSKELETAL: Denies back pain, joint pain, or myalgia. NEUROLOGIC: Denies headache, numbness, or weakness. PSYCHIATRIC: Denies anxiety or depression. All other systems reviewed are negative, except as documented in HPI. [facility] Past Medical History Medical History UTI (urinary tract infection) Surgical History Surgical History No significant past surgical history Family History Family History Other No significant family history Social History Social History Smoking status: Never smoker Alcohol intake: never Substance use: never Lack of Transportation: No Lack of Food: Never True Current Housing: I Have Housing Concerned About Future Housing: No Difficulty Paying Gas/Electric Bills: No Difficulty Paying for Meds: No Currently Unemployed: No Education: High School Diploma/GED Difficulty w/ Childcare or Family Care: No Living arrangements: with friend(s) Occupation/Education: occupation Spiritual care concerns: No Comments At the time of my signature, I reviewed and agree with the nursing past medical, surgical, social, and family history. There is no relevant family history pertinent to the patient complaint. Exam Narrative: GENERAL: This is a well-nourished, well-developed adult, in no apparent distress. They are non ill-appearing, nontoxic appearing. HEAD: normocephalic, atraumatic. EYES: Sclera clear/white. Conjunctiva normal. Vision is grossly intact. Extraocular movements intact EARS: External ears normal, auditory canals clear and without drainage, TMs normal without perforation. Hearing grossly intact. NOSE: External nose normal with no obvious nasal discharge, nasal turbinates without redness, no rhinorrhea. THROAT: Mucous membranes moist, posterior pharynx erythematous, red and patchy. Tonsils erythematous 3+. Uvula midline. No exudate. NECK: Neck supple, mild tender cervical lymphadenopathy, no masses or thyromegaly. CARDIOVASCULAR: Regular rate and rhythm without murmurs, gallops, or rubs. RESPIRATORY: Clear to auscultation. Breath sounds equal bilaterally. No wheezes, rales, or rhonchi. SKIN: warm, Dry, intact with no suspicious lesions or rash, good texture and turgor. NEURO: awake, alert, and oriented to person, place and time. There were no obvious focal neurologic abnormalities. EXTREMITIES: No joint tenderness, effusion, or edema noted. BACK: Nontender without deformity. No CVA tenderness. Course Course Emergency Course: Portions of this record may have been created with voice recognition software Level of Care: Express Care Visit Vital Signs Vital signs: Vital Signs Temperature 97.9 F 10/02/25 09:16 Pulse Rate 82 10/02/25 09:16 Respiratory Rate 16 10/02/25 09:16 Blood Pressure 109/67 10/02/25 09:16 Pulse Oximetry 100 10/02/25 09:16 Oxygen Delivery Room Air 10/02/25 09:16 Temperature 97.9 F 10/02/25 09:16 Pulse Rate 82 10/02/25 09:16 Respiratory Rate 16 10/02/25 09:16 Blood Pressure 109/67 10/02/25 09:16 Pulse Oximetry 100 10/02/25 09:16 Oxygen Delivery Room Air 10/02/25 09:16 Reviewed MDM - URI/Sore Throat MDM Narrative Medical decision making narrative: Centor score 4, symptoms clinically concerning for strep pharyngitis. Patient has known exposure recently. No evidence of an ear infection. Through shared decision making, discussed present to treatment her go ahead and do further testing on a patient like to go ahead and start antibiotic therapy without further testing. Will presumptively treat for strep pharyngitis with amoxicillin. Discussed physical exam findings. Advised supportive measures and signs/symptoms to go to the ER. Pt is appropriate for outpt treatment and f/u. Differential Diagnosis Differential diagnosis: Likely upper respiratory infection, otitis media, sinusitis and pharyngitis Critical Care Time Critical Care Time Critical Care Time: No Discharge Plan Discharge Clinical Impression: Acute streptococcal pharyngitis Patient Disposition: Home Condition: Stable Instructions: Antibiotic Form, Strep Throat (ED) Additional Instructions: Please take the amoxicillin as prescribed until gone. ?You will be contagious for 24 hours after starting the medication. ?After 24 hours on antibiotics throw tooth brush away and start using a new one. Wash your sheets and cup/water bottle that is used daily. Do not share drinks. Take Tylenol or Ibuprofen as needed for pain or fever, follow instructions on the bottle. ?Rest and stay hydrated. ?Follow up with your PCP in 3 days if symptoms are not improving. ?Go to the ER immediately if you develop worsening symptoms such as shortness of breath, chest pains, uncontrolled fevers, difficulty swallowing, or any serious concerns. ? Patient Language: Surinamese Prescriptions: New amoxicillin 500 mg tablet 500 mg PO Q12H 10 Days Qty: 20 0RF Follow-up/Referrals: UNKNOWN,DOCTOR [Primary Care Provider] Stand Alone Forms: Work/School Release IP Time of Disposition: 09:49
== END 2025-10-02 09:54 | disposition home or self-care (01) ==
DX: J02.0 Streptococcal pharyngitis (principal)
CPT/HCPCS: 99213; G0463